=== PATIENT | male | born 1980 | race Hispanic/Latino ===

== ENCOUNTER 2021-01-01 19:59 | Emergency (ER) | payer OTHER ==
[2021-01-01 20:26] VITALS: BP 127/74
[2021-01-01] MEDS ORDERED: HYDROCODONE/ACETAMINOPHEN 5/325 MG TAB PO ONE (20:30)
[2021-01-01] MEDS ORDERED: IBUP-2077 PO (21:50)
[2021-01-01] MEDS ORDERED: HYDROMORPHONE 1 MG INJ IM ONE (22:00)
[2021-01-01 23:10] VITALS: BP 123/73
== END 2021-01-01 23:11 | disposition home or self-care (01) ==
LOC: EDH 19:59
DX: S30.0XXA Contusion of lower back and pelvis, initial encounter (principal); Z88.6 Allergy status to analgesic agent; Z79.1 Long term (current) use of non-steroidal anti-inflammatories (NSAID); W01.0XXA Fall on same level from slipping, tripping and stumbling without subsequent striking against object, initial encounter; Y93.01 Activity, walking, marching and hiking; Y92.89 Other specified places as the place of occurrence of the external cause; Y99.8 Other external cause status
CPT/HCPCS: 72072; 72100; 96372; 99284; J1170